=== PATIENT | male | born 1990 | race African-American/Black ===

== ENCOUNTER 2016-10-10 01:58 | Emergency (ER) | payer OTHER ==
[~2016-10-10] VITALS: Ht 172.7 cm; Wt 75.0 kg
[2016-10-10 01:59] VITALS: TEMP 36.7; Ht 172.7 cm; Wt 75.0 kg
[2016-10-10] MEDS ORDERED: RISP0.257 PO (02:33)
[2016-10-10 03:41] VITALS: BP 143/78; PULSE 75; O2SAT 98
--- NOTE | 2016-10-10 03:45 | EMERGENCY ROOM VISIT NOTE ---
History First contact with patient: 02:00 Chief Complaint: FOREIGNBODY ANY BODY PART Stated Complaint: SWALLOWED SPOON History of Present Illness The patient is a 26 year old male who presents to the Emergency Room with complaints of swallowing a plastic spoon with nausea. Patient states after dinner at 5 PM he swallows the spoon. He states he did it because he wanted to. Patient denies chest pain, dyspnea, fever, chills, abdominal pain, vomiting , diarrhea. No other complaints per patient. Review of Systems See HPI for pertinent positives & negatives. A total of 10 systems reviewed and were otherwise negative. Past Medical/Surgical History Mental Health Social History Smoking Status: Current Every Day Smoker Smokeless Tobacco Use: No Marital Status: single Occupation Status: other (prisoner) Current/Historical Medications Scheduled Risperidone (Risperdal), Unknown Dose PO HS Allergies Coded Allergies: No Known Allergies (Unverified , 10/10/16) Physical Exam Vital Signs Date Time Temp Pulse Resp B/P Pulse Ox O2 Delivery O2 Flow Rate FiO2 10/10/16 01:59 36.7 81 20 126/80 97 Room Air Physical Exam VITALS: Vitals are noted on the nurse's note and reviewed by myself. Vital signs stable. GENERAL: [facility], in no acute distress, nondiaphoretic, well- developed well-nourished. SKIN: The skin was without rashes, erythema, edema, or bruising. There is no tenting of the skin. Capillary reflex less than 2 seconds. HEAD: Normocephalic atraumatic. EARS: External auditory canals clear, tympanic membranes pearly núñez without erythema or effusion bilaterally. EYES: Pupils equal round and reactive to light and accommodation. Conjunctivae without injection, sclerae without icterus. Extraocular movements intact. NOSE: Patent, turbinates without inflammation or discharge. MOUTH: Mucous membranes moist. Pharynx without erythema or exudate. Uvula midline. Airway patent. Tongue does not deviate. NECK: Supple without nuchal rigidity. No lymphadenopathy. No thyromegaly. Cervical spine is nontender. No JVD. HEART: Regular rate and rhythm without murmurs gallops or rubs. LUNGS: Clear to auscultation bilaterally without wheezes, rales or rhonchi. No dullness to percussion. No retractions or accessory muscle use. ABDOMEN: Positive bowel sounds x 4. Normal tympanic percussion. Soft, nontender, without masses or organomegaly. Nunn sign negative. No guarding or rebound tenderness. Tazer belt in place MUSCULOSKELETAL: No muscle atrophy, erythema, or edema noted. NEURO: Patient was alert and oriented to person place and time. Normal sensation to light and sharp touch. No focal neurological deficits. Medical Decision & Procedures ED Course Prior records/ancillary studies reviewed. Triage Nursing notes reviewed. Additional history obtained from correction officers. The patient's history was concerning for possible swallowed foreign body Differential diagnosis: Etiologies such as possible swallowed foreign body, attention seeking behavior, PUD, biliary pathology, obstruction, inflammatory bowel disease, as well as others were entertained. Physical examination findings: As above. ER treatment provided: Patient was observed and the patient felt better. Diagnostics interpreted by me: Imaging studies: Chest x-ray and KUB with no foreign object visualized. Patient's Tazer belt is appreciated. Chest and abdominal CT negative for foreign body per radiology Family and history seem consistent with nausea with no swallowed foreign body. Patient was sent back to the half-way with a correction officers. He was advised to follow-up with medical tomorrow or here in the ER sooner for abdominal pain, fevers, worsening signs or symptoms or as needed. Patient did not have acute abdomen on exam. He was well-appearing. Stable vital signs. By the evaluation outlined above emergent etiologies such as swallowed foreign object, appendicitis, diverticulitis, PUD, biliary pathology, UTI, pancreatitis, obstruction, mesenteric ischemia, aortic pathology, infections, inflammatory bowel disease, renal colic, as well as others were deemed relatively unlikely. The pt informed about the findings as listed above. All questions were answered and pleased with the treatment. Return instructions were outlined and the patient was discharged in stable condition. Referral: The patient was referred back to their primary care physician for follow-up in 2 to 3 days for a recheck of the current condition. case reviewed with my Attending Medical Decision As above Impression Primary Impression: Nausea Additional Impression: possible swallowed foreign body Departure Information Dispostion Other Condition GOOD Forms WORK / SCHOOL INSTRUCTIONS, HOME CARE DOCUMENTATION FORM, IMPORTANT VISIT INFORMATION Patient Instructions My [facility] Insticator Additional Instructions Do not swallow foreign objects. Ibuprofen(Motrin, Advil) may be used for fever or pain. Use 600mg every six hours as needed. Take with food. Avoid using more than 2400mg in a 24 hour period. Do not use 2400mg per day for more than three consecutive days without physician direction. Prolonged inappropriate use can lead to stomach upset or ulcers. (AND/OR) Acetaminophen(Tylenol) may be used for fever or pain. Use 1000mg every six hours as needed. Avoid using more than 3000mg in a 24 hour period. Rest and drink plenty of fluids as tolerated. Continue current medications. Avoid strenuous activities and anything that worsens your pain. Resume normal activities once your symptoms resolve. Return to the ER immediately for abdominal pain, vomiting, fevers, chest pains , difficulty breathing, worsening of your condition, or as needed. Follow up with your primary physician in 2-3 days for a recheck of your current condition. Problem Qualifiers
--- NOTE | 2016-10-10 06:55 | DIAGNOSTIC IMAGING REPORT ---
CHEST ONE VIEW PORTABLE CLINICAL HISTORY: ? Swallowed plastic spoon/part COMPARISON STUDY: No previous studies for comparison. FINDINGS: Lung volumes are normal. Lungs are clear. There is no pneumothorax or pleural effusion. No radiopaque foreign bodies are identified on this exam. There is no evidence for pneumomediastinum. IMPRESSION: 1. No acute cardiopulmonary findings. 2. No radiopaque foreign body identified within the chest. Electronically signed by: Dmitri Hernandez M.D. 10/10/2016 6:53 AM Dictated Date/Time: 10/10/2016 6:48 AM
--- NOTE | 2016-10-10 06:57 | DIAGNOSTIC IMAGING REPORT ---
KUB CLINICAL HISTORY: ? Swallowed plastic spoon/part COMPARISON STUDY: None. FINDINGS: A device projects over the abdomen. This decreases sensitivity for detection of radiopaque foreign bodies. In addition, there is motion artifact on this exam. No radiopaque foreign bodies are identified. There is no evidence for a bowel obstruction. IMPRESSION: Decreased sensitivity for detection of radiopaque foreign bodies but none identified on this exam. Electronically signed by: Dmitri Hernandez M.D. 10/10/2016 6:56 AM Dictated Date/Time: 10/10/2016 6:53 AM
--- NOTE | 2016-10-10 07:10 | DIAGNOSTIC IMAGING REPORT ---
CT OF THE CHEST WITHOUT IV CONTRAST CLINICAL HISTORY: ? Swallowed plastic spoon/part COMPARISON STUDY: Chest radiograph October 10, 2016. TECHNIQUE: Axial images of the chest were obtained without IV contrast. Images were reviewed in the axial, sagittal, and coronal planes. IV contrast was not administered for this examination. FINDINGS: No radiopaque foreign bodies are identified within the chest. Cardiac size is at the upper limits of normal. There is no pneumothorax or pleural effusion. There is no pneumomediastinum. No consolidation is identified. Bony thorax and upper abdomen are unremarkable. The abdomen and pelvis will be reported separately. IMPRESSION: 1. No radiopaque foreign body identified within the chest. 2. No acute intrathoracic findings. Electronically signed by: Dmitri Hernandez M.D. 10/10/2016 7:09 AM Dictated Date/Time: 10/10/2016 7:04 AM
--- NOTE | 2016-10-10 07:53 | DIAGNOSTIC IMAGING REPORT ---
ABDOMEN AND PELVIS CT WITHOUT CONTRAST CT DOSE: 522.38 mGy.cm HISTORY: ? swallowed plastic spoon/part TECHNIQUE: Multiaxial CT images of the abdomen and pelvis were performed without contrast. COMPARISON STUDY: None. FINDINGS: The lung bases are clear. Punctate calcification within the periphery of the spleen. The unenhanced spleen, gallbladder, pancreas, kidneys, and adrenal glands are within normal limits. No bowel wall thickening or obstruction. The pelvic organs are unremarkable. No suspicious lytic or blastic osseous lesions. No radiopaque foreign bodies. Normal appendix. IMPRESSION: No significant abnormality identified within the abdomen or pelvis. No radiopaque foreign bodies. Electronically signed by: Guicho Scanlon M.D. 10/10/2016 7:51 AM Dictated Date/Time: 10/10/2016 7:46 AM
== END 2016-10-10 03:43 | disposition home or self-care (01) ==
LOC: C.EDB 02:00
DX: R11.0 Nausea (principal); T18.9XXA Foreign body of alimentary tract, part unspecified, initial encounter; X58.XXXA Exposure to other specified factors, initial encounter; Y92.149 Unspecified place in prison as the place of occurrence of the external cause; F17.210 Nicotine dependence, cigarettes, uncomplicated; Z79.899 Other long term (current) drug therapy